=== PATIENT | female | born 1995 | race Caucasian/White ===

== ENCOUNTER 2019-07-04 21:25 | Emergency (ER) | payer OTHER ==
[2019-07-04 21:52] VITALS: BP 151/96
--- NOTE | 2019-07-04 22:06 | ED Physician Documentation ---
Skin Rash - HISTORIAN Historian: patient - HPI Stated Complaint: Rash Chief Complaint: Skin Rash Onset: other (last night) Timing: better Location: generalized, facial, neck, trunk Identified Cause?: No Further Comments: yes (24 year old female patient presents with macularpapular rash which started last night after her lupron IVF fertility injection. Patient has used benadryl which improves the rash; concerned because the rash is returning; c/o itching. Denies any other new medications; soaps, chemicals, foods, detergent or shampoos.) - ROS CONST: none CVS/RESP: none EYES/ENT: none GI/: none MS/SKIN/LYMPH: none NEURO/PSYCH: none - PAST HX Past History: other (hypothyroidism) Allergies/Adverse Reactions: Allergies Allergy/AdvReac Type Severity Reaction Status Date / Time No Known Drug Allergies Allergy Verified 07/04/19 21:50 Home Medications: Ambulatory Orders Medication Instructions Recorded Cholecalciferol (Vitamin D3) 1,000 unit PO DAILY av 04/07/17 [Vitamin D3] Pnv No.95/Ferrous Fum/Folic AC 1 each PO DAILY u2 04/07/17 [ Caplet] Vitamin B Complex 1 each PO DAILY av 04/07/17 Levothyroxine Sodium [Levo-T] 1 tab PO DAILY 07/04/19 Methylprednisolone [Medrol] 4 mg PO DAILY #1 tab.ds.pk 07/04/19 - SOCIAL HX Smoking History: non-smoker - FAMILY HX Family History: denies: none - VITAL SIGNS Vital Signs: Vital Signs Temp Pulse Resp BP Pulse Ox 100.5 F H 88 18 151/96 98 07/04/19 22:55 07/04/19 22:55 07/04/19 22:55 07/04/19 22:55 07/04/19 22:55 - REVIEWED ASSESSMENTS Nursing Assessment Reviewed: Yes Vitals Reviewed: Yes Progress - Progress Progress: patient medicated in ER with solumedrol; claritin and pepcid. Reviewed medication to continue tomorrow. Encouraged patient to follow up with fertility MD tomorrow. ED Results Lab/Radiology - Orders Orders: ED Orders Category Date Time Status Famotidine [Pepcid] Med 07/04/19 21:58 Discontinued 20 mg PO NOW ONE Loratadine [Claritin] Med 07/04/19 21:58 Discontinued 10 mg PO NOW ONE diphenhydrAMINE HCL [Benadryl] Med 07/04/19 22:01 Discontinued 50 mg IM NOW ONE methylPREDNISolone SOD SUCC [SOLU-Medrol] Med 07/04/19 22:03 Discontinued 125 mg IM NOW ONE Skin Rash Physical Exam - EXAM General Appearance: mild distress Skin: warm,dry, skin rash, erythema Location: generalized, anterior neck, abdomen, extremities Character: asymmetric, maculopapular, urticarial, erythematous Extremities: non-tender, nml ROM, no edema EENT: eyes nml inspection Neck: trachea midline, no swelling, other (no stridor) Respiratory: no resp distress, chest non-tender, breath sounds normal CVS: reg. rate & rhythm, heart sounds nml Abdomen: non-tender, no organomegaly, nml bowel sounds, no distention Neuro/Psych: oriented x3, CN's nml as tested, motor nml, sensation nml, mood/affect nml Discharge Clincal Impression: Urticarial rash Prescriptions: Methylprednisolone [Medrol] 4 mg PO DAILY #1 tab.ds.pk Referrals: Primary Doctor,No [Primary Care Provider] - 2 Days Additional Instructions: Continue Benadryl 25-50mg by mouth every 6 hours until symptoms resolve Take either Claritan, Allergra, or Zyrtec daily until symptoms resolve. Zantac 150mg morning and night until symptoms resolve See your primary doctor or return to the ER if you have increase shortness of breath or difficulty breathing. Condition: Stable Disposition: 01 HOME, SELF-CARE Decision to Admit: NO Decision Time: 22:06
[2019-07-04] MEDS: LORATADINE 10 MG TABLET PO ONE (22:25)
[2019-07-04] MEDS: methylPREDNISolone SOD SUCC 125 MG/2 ML VIAL IM ONE (22:25)
[2019-07-04] MEDS: diphenhydrAMINE HCL 50 MG/ML VIAL IM ONE (22:25)
[2019-07-04] MEDS: FAMOTIDINE 20 MG TABLET PO ONE (22:25)
== END 2019-07-04 22:55 | disposition home or self-care (01) ==
LOC: ED 21:25
DX: L50.9 Urticaria, unspecified (principal)
CPT/HCPCS: 96372; 99284; J1200; J2930